=== PATIENT | female | born 1995 | race Caucasian/White ===

== ENCOUNTER 2017-08-14 09:49 | Inpatient (IN) ==
[2017-08-14] MEDS ORDERED: Ringers Solution, Lactated 1,000 ML ONE (10:08)
[2017-08-14] MEDS ORDERED: Famotidine 20 MG/2 ML VIAL IVP ONE (10:33)
[2017-08-14] MEDS ORDERED: CeFAZolin Pre 3,000 MG/100 ML 3,000 MG/100 ML BAG IVPB ONE (10:33)
[2017-08-14] MEDS ORDERED: Ringers Solution, Lactated 1,000 ML IVC ONE (10:33)
[2017-08-14] MEDS ORDERED: Oxytocin 20 units/ LR 1000 mL 20 UNIT/1,000 ML BAG IVC ONE (10:33)
[2017-08-14] MEDS ORDERED: Metoclopramide 10 MG/2 ML VIAL IVP ONE (10:33)
[2017-08-14] MEDS ORDERED: 0.9 % Sodium Chloride 1,000 ML IVC SCH (10:45)
[2017-08-14] MEDS ORDERED: Oxytocin 20 units/ LR 1000 mL 20 UNIT/1,000 ML BAG IVC SCH ×2 (10:45→15:40)
[2017-08-14 10:59] LABS: Basophils % 0.3 %; Eosinophils # 0.1 K/mcL (0.0-0.6); Eosinophils % 0.9 %; Hematocrit 35.1 % (35.3-44.9); Hemoglobin 11.8 g/dL (11.5-15.4); Immature Granulocytes % 0.5 % (0-4); Lymphocytes # 2.7 K/mcL (0.6-4.6); Lymphocytes % 18.4 %; Mean Corpuscular HGB Conc 33.6 g/dL (31.6-35.5); Mean Corpuscular Hemoglobin 29.4 pg (28.0-33.3); Mean Corpuscular Volume 87.5 fL (83.0-100.0); Mean Platelet Volume 10.3 fL (9.4-12.4); Monocytes % 6.7 %; Neutrophils # 10.9 K/mcL (1.6-8.9); Platelet Count 284 K/mcL (140-400); Red Blood Count 4.01 M/mcL (3.82-4.97); Red Cell Distribution Width 14.6 % (11.5-14.5); Segmented Neutrophils % 73.2 %
--- NOTE | 2017-08-14 11:00 | Anesthesia Evaluation PreOp ---
Date of Encounter: 08/14/17 Time of Encounter: 10:57 - Past History Planned Operation: vaginal del, G1 breech Cardiac History: Denies any Significant Hx, HTN (gestational on labetolol) Pulmonary History: Denies Any Significant HX CONTROLLER REPAIRER AND TESTER History: Denies Any Significant HX Other Medical History: Other (MO> 50 BMI) Anesthesia History: No Prior Anesthetic Complications, Past Anesthesia : Yes Medications and Allergies Labetalol HCl 200 mg PO BID 08/14/17 [History] 3 Allergy/AdvReac Type Severity Reaction Status Date / Time ceftriaxone [From Rocephin] Allergy Hives Verified 08/14/17 10:53 Anesthesia Exam - HEENT Pupil (Motor): Pupils equal Mallampati: II Teeth: Normal Oral Opening: Greater than 3 - CONTROLLER REPAIRER AND TESTER LOC: Oriented CONTROLLER REPAIRER AND TESTER Motor: Normal RUE, Normal LUE, Normal RLE, Normal LLE, Normal Face CONTROLLER REPAIRER AND TESTER Sensory: Normal: RUE, LUE, RLE, LLE, Face - Cardiac Rhythm: Regular Murmur: None - Pulmonary Breath Sounds: bilateral Clear Respiratory Effort: Symmetrical Anesthesia Assess/Plan ASA Score: 2 Modified Marydel Scale for Level of Consciousness: Cooperative, oriented, and tranquil Anesthetic Plan: General, Regional Monitoring Plan: Standard Monitors Recovery Plan: PACU
[2017-08-14] MEDS ORDERED: *HR* HYDROmorphone (PF) 1 MG/ML SYRINGE IVP PRN ×3 (11:01→15:40)
[2017-08-14] MEDS ORDERED: *HR* Promethazine 25 MG/ML VIAL IVP PRN ×2 (11:01→15:40)
[2017-08-14 11:04] LABS: Amphetamine Screen,Urine Negative ng/mL (Cutoff=1000); Barbiturate Screen,Urine Negative ng/mL (Cutoff=200); Benzodiazepines Screen,Urine Negative ng/mL (Cutoff=200); Cannabinoid Screen,Urine Negative ng/mL (Cutoff = 50); Cocaine Screen,Urine Negative ng/mL (Cutoff= 300); Opiate Screen,Urine Negative ng/mL (Cutoff=300); Phencyclidine Screen,Urine Negative ng/mL (Cutoff=25)
[2017-08-14] MEDS ORDERED: Ringers Solution, Lactated 2,000 ML ONE (11:11)
[2017-08-14] MEDS ORDERED: *HR* Phenylephrine 10 MG/ML VIAL ONE (11:15)
[2017-08-14] MEDS ORDERED: *HR* Oxytocin 10 UNIT/ML VIAL IM ONE (11:15)
[2017-08-14] MEDS ORDERED: *HR* FentaNYL (PF) 100 MCG/2 ML VIAL ONE (11:15)
[2017-08-14] MEDS ORDERED: Ondansetron 4 MG/2 ML VIAL ONE (11:15)
[2017-08-14] MEDS ORDERED: *HR* Morphine Sulfate/PF 5 MG/10 ML AMPUL ONE (11:15)
[2017-08-14] MEDS ORDERED: EPHEDrine 50 MG/ML VIAL ONE (11:15)
--- NOTE | 2017-08-14 11:32 | OB/GYN History & Physical ---
Date of Encounter: 08/14/17 Time of Encounter: 11:30 Assessment and Plan (1) 39 weeks gestation of Current visit: Yes Status: Acute (2) Breech presentation Current visit: Yes Status: Acute Proceed with scheduled . Informed consent obtained yesterday in the office. She denies any questions today Qualifiers: Fetus number: single or unspecified fetus Qualified Code(s): O32.1XX0 - Maternal care for breech presentation, not applicable or unspecified History of Present Illness Chief complaint: primary HPI: Ms. Melendez is a 22 year old female G1 at 39 w 4 d presents for scheduled primary for breech. She denies any labor symptoms. She reports good movement Past Med Surg Social Fam HX - Past Medical History Source: patient Medical history: GERD, hypertension Psychiatric history: no psych history - Past Surgical History Surgical History: no surgical history - Social History Smoking Status: Never smoker Smokeless Tobacco Status: No Alcohol use: none Drug use: none Occupational status: employed [employer] History - Pregnancies : 1 Livin Medications and Allergies Labetalol HCl 200 mg PO BID 08/14/17 [History] 3 Allergy/AdvReac Type Severity Reaction Status Date / Time ceftriaxone [From Rocephin] Allergy Hives Verified 08/14/17 10:53 Review of System OB All systems PM: reviewed and no additional remarkable complaints except as stated Exam - Constitutional Constitutional: well developed, well nourished, no acute distress, obese - Lungs Respiratory exam: CTAB - Cardiovascular Cardiovascular exam: RRR - Abdomen Abdomen: Present: bowel sounds normal, gravid, non tender - Comments Comments: bedside ultrasound by CNM confirms presentation still breech Results Result Diagrams: 08/14/17 10:40 Abnormal lab results WBC 14.8 K/mcL (4.3-11.1) H 08/14/17 10:40 Hct 35.1 % (35.3-44.9) L 08/14/17 10:40 RDW 14.6 % (11.5-14.5) H 08/14/17 10:40 Neutrophils # 10.9 K/mcL (1.6-8.9) H 08/14/17 10:40 All other labs normal.
[2017-08-14] MEDS ORDERED: Gentamicin 440 MG in 0.9 % Sodium Chloride 100 ML IVPB ONE (11:51)
[2017-08-14] MEDS ORDERED: Clindamycin 900 MG/50 ML 900 MG/50 ML IV.SOLN IVPB ONE (11:51)
--- NOTE | 2017-08-14 13:05 | OB/GYN Procedure Note ---
Section - Date of procedure: 08/14/17 Preop diagnosis: breech Post-op diagnosis: same Procedure: section, primary low transverse Surgeon: Natali Kay Estimated blood loss (cc): 500 Anesthesiologist: Berto Pradhan Wool Grader: Bayron Spring Anesthesia Type: Spinal section complications: none Disposition: L&D Recovery Room Specimens: Placenta (hold) - (s) A Infant Delivery Date: 08/14/17 Delivery Time: 12:20 Presentation: troy breech Route of delivery: breech extraction Gender: Male Viability: Viable Pounds: 8 Ounces: 7 Gram Weight: 3.82 kg at 1 minute: 9 at 5 minutes: 9 Placenta: spontaneous Cord: 3 umbilical vessels - Narrative Narrative: Patient was taken to the operative suite and placed under spinal anesthetic. She was then prepped and draped in normal sterile fashion in the dorsal supine position. Timeout was then performed. Antibiotics were given at room time. SCDs are on and active. Pfannenstiel skin incision is then made and carried through to underlying layer of fascia with the Bovie. The fascia was then incised in the midline and incision extended laterally with the Sandhu scissors. The fascia was tented up and dissected off the rectus muscles sharply. The rectus muscles were in the midline and the peritoneum was tented up and entered sharply with the Metzenbaum scissors. The peritoneal incision was then extended bluntly. Narinder retractor was then placed. A low transverse uterine incision was then made. The infant breech was brought to the incision and the was delivered using fundal pressure and breech maneuvers. There was no nuchal cord. Cord was clamped and cut. was handed to waiting nursery staff. Placenta delivered spontaneously complete and intact with a three-vessel cord. The uterus was cleared of all clots and debris using moist laparotomy sponge. The uterine incision was then closed using 0 Vicryl in a running locked fashion. A second layer of the same suture was used to obtain excellent hemostasis. The abdomen was then cleared of all clots and debris using copious irrigation. A piece of Interceed was placed over the uterine incision in the anterior uterine serosa. The Narinder retractor was removed. The fascial incision was then closed using 0 PDS in a running fashion. The skin was closed using 4-0 Vicryl in a subcuticular fashion. Steri-Strips and sterile lisa dressing are then placed. Mother and infant taken to recovery in stable condition.
[2017-08-14] MEDS ORDERED: *HR* Morphine 2 MG/ML SYRINGE IVP PRN ×2 (15:24→15:40)
--- NOTE | 2017-08-14 15:30 | Anesthesia Evaluation Post Op ---
Date of Encounter: 08/14/17 Time of Encounter: 15:30 - Vital Signs Vital Signs: vss - Lungs Lungs: Clear Ascult./Percussion - Airway Airway: Non-obstructed - Mental Status Mental Status: Alert & Oriented, Answers Appropriately - Pain Pain Scale used: Yousif (Faces) - Nausea Vomiting Nausea Vomiting: Not Present - Hydration Hydration: Aranda catheter - Discharge PostOp Status: Transfer Patient to floor
[2017-08-14] MEDS: *HR* Labetalol 20 MG/4 ML SYRINGE IVP ONE ×2 (15:33→16:03)
[2017-08-14] MEDS ORDERED: Metoclopramide 10 MG/2 ML VIAL IVP PRN (15:40)
[2017-08-14] MEDS ORDERED: Ondansetron 4 MG/2 ML VIAL IVP PRN (15:40)
[2017-08-14] MEDS ORDERED: Simethicone 80 MG TAB.CHEW PO PRN (15:40)
[2017-08-14] MEDS ORDERED: Sennosides 8.6 MG TABLET PO PRN (15:40)
[2017-08-14] MEDS: Acetaminophen 325 MG TABLET PO PRN (16:03)
[2017-08-15] MEDS: Acetaminophen 325 MG TABLET PO PRN ×2 (05:37)
[2017-08-15] MEDS: *HR* OxyCODONE/APAP 5/325 TABLET PO PRN ×3 (10:49→23:00)
--- NOTE | 2017-08-15 11:21 | OB/GYN Progress Note ---
Date of Encounter: 08/15/17 Time of Encounter: 11:17 - Assessment and Plan (1) delivery, delivered, current hospitalization Current Visit: Yes Status: Acute Continue current management plan, Stable POD #1 Subjective - Subjective Interval history: Pt states pain is well managed. voiding. Patient reports: pain well controlled : doing well Objective - Vital Signs Latest vital signs: Vital Signs Temp Pulse Pulse Resp BP Pulse Ox 08/15/17 08:00 98.2 F 86 14 148/97 98 08/15/17 03:40 98.3 F 86 14 125/84 99 08/14/17 23:40 98.1 F 80 16 137/88 99 08/14/17 20:00 84 16 08/14/17 19:45 97.9 F 85 14 125/83 98 08/14/17 19:11 97.6 F 79 14 129/87 98 08/14/17 18:00 98.2 F 86 86 16 160/102 95 08/14/17 17:00 97.4 F L 78 78 14 143/94 97 08/14/17 16:00 98.0 F 72 16 145/100 98 08/14/17 15:45 98.1 F 74 18 151/101 98 08/14/17 15:30 97.8 F 78 16 156/104 98 Intake and Output 08/14/17 08/15/17 08/15/17 23:59 07:59 15:59 Intake Total 120 / 120 650 / 650 Output Total 1425 / 1425 1500 / 1500 Balance -1425 / -1425 -1380 / -1380 650 / 650 Intake: Oral 120 / 120 650 / 650 Output: Catheter 1425 / 1425 1500 / 1500 Other: # Voids 1 Weight 135.987 kg Patient Weight 08/15/17 23:59 Weight 135.987 kg - Exam Lungs: bilateral: normal Chest: Normal S1, Normal S2 Extremities: Present: normal Abdomen: Present: normal appearance, soft Incision: Present: normal, dressed (PICOT in place ) Uterus: Present: normal - Labs Labs: Laboratory Results - last 24 hr 08/14/17 10:40 Urine Opiates Screen Negative Ur Barbiturates Screen Negative Ur Phencyclidine Scrn Negative Ur Amphetamines Screen Negative U Benzodiazepines Scrn Negative Urine Cocaine Screen Negative U Marijuana (THC) Screen Negative
[2017-08-15] MEDS: Prenatal Vit/FA 1 EACH TABLET PO SCH (15:24)
[2017-08-16] MEDS: *HR* OxyCODONE/APAP 5/325 TABLET PO PRN ×2 (03:50→17:48)
[2017-08-16] MEDS: Prenatal Vit/FA 1 EACH TABLET PO SCH (08:45)
[2017-08-16 10:38] LABS: Basophils % 0.2 %; Eosinophils # 0.2 K/mcL (0.0-0.6); Eosinophils % 1.1 %; Hematocrit 34.8 % (35.3-44.9); Hemoglobin 11.8 g/dL (11.5-15.4); Immature Granulocytes % 0.4 % (0-4); Lymphocytes # 2.7 K/mcL (0.6-4.6); Lymphocytes % 19.2 %; Mean Corpuscular HGB Conc 33.9 g/dL (31.6-35.5); Mean Corpuscular Hemoglobin 29.5 pg (28.0-33.3); Mean Platelet Volume 9.9 fL (9.4-12.4); Monocytes # 1.1 K/mcL (0.0-1.3); Monocytes % 7.6 %; Platelet Count 317 K/mcL (140-400); Red Cell Distribution Width 14.6 % (11.5-14.5); Segmented Neutrophils % 71.5 %
[2017-08-16 10:51] LABS: Alanine Aminotransferase 30 Units/L (0-55); Aspartate Amino Transferase 26 Units/L (5-34); BUN/Creatinine Ratio 11 (6-26); Blood Urea Nitrogen 8 mg/dL (7-20); Lactate Dehydrogenase 264 Units/L (159-327); Uric Acid 5.7 mg/dL (2.6-6.0); eGFR For African Americans > 60 (> 60); eGFR For Non-African Americans > 60 (> 60)
[2017-08-16 15:25] VITALS: BP 128/84
--- NOTE | 2017-08-16 16:12 | Discharge Summary ---
Date of Encounter: 08/16/17 Time of Encounter: 16:09 - Discharge Diagnosis (1) Mother currently breast-feeding Priority: Secondary Status: Acute Comments: Pt has breastpump at home. (2) Chronic hypertension affecting Priority: Secondary Status: Acute Comments: BP now well controlled on Labetalol. S/sx preeclampsia discussed at length. Pt has BP cuff at home. BP check scheduled for 1 week. (3) delivery, delivered, current hospitalization Priority: Primary Status: Acute Comments: Pt meeting all [id number] milestones. She is requesting discharge home. - Discharge Medications Prescriptions: OxyCODONE/APAP 5/325 [Percocet 5/325 MG] 1 each PO Q4HR PRN #30 tablet PRN Reason: Moderate pain 4-6 Docusate [Colace] 100 mg PO BID #60 capsule Labetalol [Trandate] 200 mg PO BID #120 tablet Home Medications: Docusate [Colace] 100 mg PO BID #60 capsule 08/16/17 [Rx] Labetalol [Trandate] 200 mg PO BID #120 tablet 08/16/17 [Rx] OxyCODONE/APAP 5/325 [Percocet 5/325 MG] 1 each PO Q4HR PRN #30 tablet 08/16/17 [Rx] Vit/FA 1 each PO DAILY tablet 08/16/17 [Rx] Simethicone [Gas-X] 80 mg PO TID PRN tab.chew 08/16/17 [Rx] Allergies/Adverse Reactions: 3 Allergy/AdvReac Type Severity Reaction Status Date / Time ceftriaxone [From Rocephin] Allergy Hives Verified 08/14/17 10:53 Data Procedures and tests throughout hospitalization: Laboratory Tests 08/14/17 08/14/17 08/16/17 10:40 10:40 10:29 WBC 14.8 H 14.0 H RBC 4.01 4.00 Hgb 11.8 11.8 Hct 35.1 L 34.8 L MCV 87.5 87.0 MCH 29.4 29.5 MCHC 33.6 33.9 RDW 14.6 H 14.6 H Plt Count 284 317 MPV 10.3 9.9 Immature Gran % 0.5 0.4 Seg Neutrophils % 73.2 71.5 Lymphocytes % 18.4 19.2 Monocytes % 6.7 7.6 Eosinophils % 0.9 1.1 Basophils % 0.3 0.2 Neutrophils # 10.9 H 10.0 H Lymphocytes # 2.7 2.7 Monocytes # 1.0 1.1 Eosinophils # 0.1 0.2 Basophils # 0.0 0.0 BUN Creatinine Est GFR ( Amer) Est GFR (Non-Af Amer) BUN/Creatinine Ratio Uric Acid AST ALT Lactate Dehydrogenase Urine Opiates Screen Negative Ur Barbiturates Screen Negative Ur Phencyclidine Scrn Negative Ur Amphetamines Screen Negative U Benzodiazepines Scrn Negative Urine Cocaine Screen Negative U Marijuana (THC) Screen Negative 08/16/17 10:29 WBC RBC Hgb Hct MCV MCH MCHC RDW Plt Count MPV Immature Gran % Seg Neutrophils % Lymphocytes % Monocytes % Eosinophils % Basophils % Neutrophils # Lymphocytes # Monocytes # Eosinophils # Basophils # BUN 8 Creatinine 0.71 Est GFR ( Amer) > 60 Est GFR (Non-Af Amer) > 60 BUN/Creatinine Ratio 11 Uric Acid 5.7 AST 26 ALT 30 Lactate Dehydrogenase 264 Urine Opiates Screen Ur Barbiturates Screen Ur Phencyclidine Scrn Ur Amphetamines Screen U Benzodiazepines Scrn Urine Cocaine Screen U Marijuana (THC) Screen Labs on day of discharge: Labs from last 24 hours 08/16/17 08/16/17 10:29 10:29 WBC 14.0 H RBC 4.00 Hgb 11.8 Hct 34.8 L MCV 87.0 MCH 29.5 MCHC 33.9 RDW 14.6 H Plt Count 317 MPV 9.9 Immature Gran % 0.4 Seg Neutrophils % 71.5 Lymphocytes % 19.2 Monocytes % 7.6 Eosinophils % 1.1 Basophils % 0.2 Neutrophils # 10.0 H Lymphocytes # 2.7 Monocytes # 1.1 Eosinophils # 0.2 Basophils # 0.0 BUN 8 Creatinine 0.71 Est GFR ( Amer) > 60 Est GFR (Non-Af Amer) > 60 BUN/Creatinine Ratio 11 Uric Acid 5.7 AST 26 ALT 30 Lactate Dehydrogenase 264 Date of admission: 08/14/17 09:49 Primary care physician: Tomas Khalil MD Consults: 08/15/17 13:05 Consult to Worship Pastor (W&C) [CONS] Stat Reason For Exam: Reason for SW Consult: due to family members expressed concern Discharging clinician: Lennie Sher Anticipated date of discharge: 08/16/17 - Patient Status Disposition: Home, Self-Care Condition: Good Functional capacity at discharge: independent ambulation - Discharge Instructions Follow Up With: Tomas Khalil MD [Primary Care Provider] - Natali Kay DO [Partnered Physician] - - Diet and Activity Activity: resume usual activities as tolerated Diet: regular diet Hospital Course Reason for admission: section Delivery: section Episiotomy: none Laceration: none Other procedures: none complications: none Discharge diagnosis: IUP at term delivered baby: male Hospital course: - Date of procedure: 08/14/17 Preop diagnosis: breech Post-op diagnosis: same Procedure: section, primary low transverse Surgeon: Natali Kay Estimated blood loss (cc): 500 Anesthesiologist: Berto Pradhan Supervisor Pipeline: Bayron Spring Anesthesia Type: Spinal section complications: none Disposition: L&D Recovery Room Specimens: Placenta (hold) - (s) Infant A Delivery Date: 08/14/17 Infant Delivery Time: 12:20 Presentation: troy breech Route of delivery: breech extraction Gender: Male Viability: Viable Pounds: 8 Ounces: 7 Gram Weight: 3.82 kg at 1 minute: 9 at 5 minutes: 9 Placenta: spontaneous Cord: 3 umbilical vessels Time Attestation: Total time spent providing and/or coordinating discharge services: Time Spent: Less than 30 minutes - VTE Documentation of Mechanical Device: Intermittent pneumatic compression device Exam - Constitutional Vitals: Temp Pulse Resp BP Pulse Ox 98.5 F 78 18 128/84 99 08/16/17 15:15 08/16/17 15:15 08/16/17 15:15 08/16/17 15:15 08/16/17 04:03 General appearance IM: cooperative, A&O X 3, pleasant, no acute distress, answers questions appropriately - Respiratory Respiratory exam: Present: CTAB - Cardiovascular Cardiovascular exam IM: Present: RRR, +S1, +S2 - GI/Abdominal GI/Abdominal exam IM: normal bowel sounds, soft Incision: dry, dressed Additional comments: RYAN dressing in place, D&I - Rectal Rectal exam: deferred - Uterine Tone: Firm Uterus Position: 1 Finger Below Umbilicus - Extremities Exam Extremities exam IM: Present: full ROM, normal capillary refill, normal inspection, warm - Neurological Exam Neurological exam: alert, oriented X3, reflexes normal - Other Additional findings: OARRS reviewed by Saige Sher CNM. Plan of care discussed with Dr. Stevenson.
== END 2017-08-16 18:10 | disposition home or self-care (01) | DRG 765 ==
LOC: 1NENULAB 09:49 → 1NENUOBS 17:35
PROVIDERS: ADMIT Obstetrics & Gynecology; ATTEND Obstetrics & Gynecology